=== PATIENT | male | born 1970 | race Caucasian/White ===

== ENCOUNTER → 2021-03-14 15:13 | Outpatient (CLI) | payer BC, SELFPAY ==
--- NOTE | ~2021-03-14 | XR_ITS ---
XR finger 2nd RT min 2V DATE: 03/14/2021 15:29 INDICATION: Fracture/dislocation of second digit TECHNIQUE: 4 views COMPARISON: None FINDINGS: No fracture or dislocation, periosteal reaction or bone destruction. Joint spaces are prese rved. No subcutaneous emphysema or radiopaque soft tissue foreign body. IMPRESSION: No significant abnormality of second digit Reviewed, dictated and finalized at location A.
== END ==
PROVIDERS: Visit Provider Plastic Surgery
DX: S62.600A Fracture of unspecified phalanx of right index finger, initial encounter for closed fracture (principal); X58.XXXA Exposure to other specified factors, initial encounter
CPT/HCPCS: 73140

== ENCOUNTER → 2021-11-03 07:23 | Outpatient (CLI) | payer BC, SELFPAY ==
--- NOTE | ~2021-11-03 | MR_ITS ---
EXAMINATION: MR knee RT wo con DATE: 11/03/2021 08:13 INDICATION: Chronic right knee pain TECHNIQUE: Magnetic resonance imaging (MRI) of the right knee was performed without intravenous contr ast. Sequences included axial PD-weighted FS FSE, coronal PD-weighted FSE and PD-weighted FS FSE, sag ittal PD-weighted FSE, and sagittal T2-weighted FS FSE. COMPARISON: X-ray 05/01/2005 FINDINGS: Medial compartment: Normal meniscus. Cartilage intact. Lateral compartment: Normal meniscus. Cartilage intact. Patellofemoral compartment: Mild osteophytosis. Extensor mechanism and retinacula are intact. Irregular, somewhat cystic or serpi ginous appearing T2 hyperintensity mixed with areas of low signal intensity in the suprapatellar fat. Ligaments and tendons: ACL, PCL, LCL, and MCL are intact. Fluid: No significant joint effusion. Osseous/other: Benign and homogenous marrow signal. IMPRESSION: 1. Indeterminate lesion in the suprapatellar fat, this may represent pseudotumor from chronic impinge ment, old hematoma or fat necrosis, less likely PVNS or malignancy. This may require biopsy for defin itive characterization (recommend referral to orthopedic oncology if biopsy is considered). Reviewed, dictated and finalized at location K. IMPRESSION: 1. Indeterminate lesion in the suprapatellar fat, this may represent pseudotumo r from chronic impingement, old hematoma or fat necrosis, less likely PVNS or m alignancy. This may require biopsy for definitive characterization (recommend r eferral to orthopedic oncology if biopsy is considered).
== END ==
PROVIDERS: PCP Family Medicine; Visit Provider Orthopaedic Surgery
DX: M25.561 Pain in right knee (principal); G89.29 Other chronic pain; M88.9 Osteitis deformans of unspecified bone
CPT/HCPCS: 73721

== ENCOUNTER → 2022-08-05 16:39 | Outpatient (CLI) | payer BC, SELFPAY ==
--- NOTE | ~2022-08-05 | XR_ITS ---
EXAMINATION: XR finger 3rd LT min 2V DATE: 08/05/2022 16:52 INDICATION: Pain and swelling at the left third digit post injury at the proximal interphalangeal amy nt 4 weeks prior TECHNIQUE: Dorsal palmar, lateral and 2 oblique views of the left third digit were obtained COMPARISON: None FINDINGS: Bone alignment is normal. No fracture. Joint spaces are normal. Soft tissue swelling about the left t hird proximal interphalangeal joint. IMPRESSION: 1. No osseous abnormality. Reviewed, dictated and finalized at location A. RIM CONTROLLER IMPRESSION: 1. No osseous abnormality.
== END ==
PROVIDERS: PCP Family Medicine; Visit Provider Family Medicine
DX: S69.92XA Unspecified injury of left wrist, hand and finger(s), initial encounter (principal); X58.XXXA Exposure to other specified factors, initial encounter
CPT/HCPCS: 73140

== ENCOUNTER 2024-09-06 01:42 | Day surgery (SDC) | payer BC, SELFPAY ==
[2024-08-17 13:36] VITALS: BMI 25.8
--- OUTSIDE RECORDS SUMMARY | 2024-09-06 01:45 | XMS_ITS | Encounter Summary ---
Author Organization [facility] Address [address] [place] [address] Care Team Providers Care Reservations Sales Supervisor Name Role Phone Unavailable Primary Care Provider Unavailabl e Encounter Details Date Type Department Care Team (Late st Contact Info) Description 11/01/2021 Lab Requisition [facility] DermPath Lab [address] [place] [address] Marcelo Hayden MD PROFESSIONAL [place], [place] [id number] Social History Tobacco Use Types Packs/Day Years Used Date Smoking Tobacco: Never Smokeless Tobacco: Never Sex and Gender Information Value Date Recorded Sex Assigned at Not on file Gender Identity Not on file Sexual Orientation Not on file documented as of this encounter Plan of Treatment Not on file documented as of this encounter Procedures Procedure Name Priority Date/Time Associated Diagnosis Comments DERMATOPATHOLOGY Routine 10/31/2021 3:33 AM CDT documented in this encounter Results * DERMATOPATHOLOGY (10/31/2021 3:33 AM CDT) Case Report Dermatopathology Report Case: [id number] Authorizing Provider: Marcelo Hayden MD Collected: 10/31/2021 03:33 AM Ordering Location: [facility] D[facility] Lab Received: 11/01/2021 01:57 PM Pathologist: Lopez Andres MD Specimen: Skin, right anterior shoulder 2 6:54 PM CDT DERMATOPATHOLOGY LABORATORY Final Diagnosis Specimen A. SKIN, right anterior shoulder: SEBORRHEIC KERATOSIS, INFLAMED (L82.0) 2 6:54 PM CDT DERMATOPATHOLOGY LABORATORY Clinical History R/O BCC, SCC, ISK. 2 6:54 PM CDT DERMATOPATHOLOGY LABORATORY Gross Description Specimen A: Received is one formalin filled container labeled with the patient's name and designated right anterior shoulder. The specimen consists of a shave biopsy measuring [id number]. Jar 0. 2 6:54 PM CDT DERMATOPATHOLOGY LABORATORY Microscopic Description Specimen A. SKIN, right anterior shoulder: There is hyperkeratosis, parakeratosis, papillomatosis, and acanthosis of the epidermis. There is a lymphohistiocytic infiltrate within the papillary dermis that is focally lichenoid. 2 6:54 PM CDT DERMATOPATHOLOGY LABORATORY Disclaimer An external and internal positive and negative controls are appropriate for the histochemical, immunohistochemical and immunofluorescence stain(s) in this case (if any), except where stated explicitly. The performance characteristics of the stain(s) cited in this report were developed and its performance characteristic determined by the Dermatopathology Laboratory at [facility], directed by Dr. Tong Andres. These tests need not be, and therefore are not, approved by the [place] Food and Drug Administration. The tests are used for clinical purposes. Billing Codes Specimen Charges Stain Charges 55090 1 2 6:54 PM CDT DERMATOPATHOLOGY LABORATORY Embedded Images 2 6:54 PM CDT DERMATOPATHOLOGY LABORATORY Pathology/Cytolo gy TISSUE SPECIMEN FROM SKIN / Unknown 10/31/2021 3:33 AM CDT 11/01/2021 1:57 PM CDT Marcelo Hayden MD LAB - PATHOLOGY/CYTO LOGY ORDERABLES DERMATOPATHOLOGY LABORATORY [facility] - Department of Dermatology [address], [address] [phone] documented in this encounter Visit Diagnoses Not on filedocumented in this encounter
--- OUTSIDE RECORDS SUMMARY | 2024-09-06 01:45 | XMS_ITS | Patient Health Summary ---
Author Organization [facility] Address [address] [place] [address] Care Team Providers Care Retail Grocer Name Role Phone Unavailable Primary Care Provider Unavailabl e Note from [facility],non-owned Affiliates and Associated Physician Practices is amultiple site organization consisting of ambulatory clinics and hospital sitesin [place], [place] and [place]. This disclosure is being madepursuant to the Care Everywhere program and may not contain all information available regarding this patient. Last updated 18.[facility] Allergies No known active allergies Medications * Be aware that medications may not be up to date on this document. Alwaysverify current medications with the patient. * ALBUTEROL IN * Testosterone (ANDROGEL TD) * fluticasone propionate (FLONASE) 50 MCG/ACT nasal spray(Started 04/15/2017) [place] 2 sprays into each nostril once daily Social History Tobacco Use Types Packs/Day Years Used Date Smoking Tobacco: Never Smokeless Tobacco: Never Sex and Gender Information Value Date Recorded Sex Assigned at Not on file Gender Identity Not on file Sexual Orientation Not on file Last Filed Vital Signs Vital Sign Reading Time Taken Comments Blood Pressure 118/60 04/15/2017 2:54 PM CDT Pulse 75 04/15/2017 2:54 PM CDT Temperature 36.9 C (98.4 F) 04/15/2017 2:54 PM CDT Respiratory Rate 16 04/15/2017 2:54 PM CDT Oxygen Saturation 97% 04/15/2017 2:54 PM CDT Inhaled Oxygen Concentration - - Weight 79.4 kg (175 lb) 04/15/2017 2:54 PM CDT Height 182.9 cm (6') 04/15/2017 2:54 PM CDT Body Mass Index 23.73 04/15/2017 2:54 PM CDT Procedures * DERMATOPATHOLOGY(Performed 10/31/2021) * DERMATOPATHOLOGY(Performed 05/09/2021) * DERMATOPATHOLOGY(Performed 04/09/2016) Results * DERMATOPATHOLOGY (10/31/2021 3:33 AM CDT) Only the most recent of3 resultswithin the time period is included. Case Report Dermatopathology Report Case: [id number] Authorizing Provider: Marcelo Hayden MD Collected: 10/31/2021 03:33 AM Ordering Location: [facility] DermPath Lab Received: 11/01/2021 01:57 PM Pathologist: [...] specimen consists of a shave biopsy measuring [id number]. Jar 0. 2 6:54 PM CDT DERMATOPATHOLOGY [...] characteristic determined by the Dermatopathology Laboratory at [facility], directed by Dr. Tong Andres. These tests need not be, and therefore are not, approved by the [place] Food and Drug Administration. The tests are used for clinical purposes. Billing Codes Specimen Charges Stain Charges 32362 1 2 6:54 PM CDT DERMATOPATHOLOGY LABORATORY Embedded Images 2 6:54 PM CDT DERMATOPATHOLOGY LABORATORY Pathology/Cytolo gy TISSUE SPECIMEN FROM SKIN / Unknown 10/31/2021 3:33 AM CDT 11/01/2021 1:57 PM CDT Marcelo Hayden MD LAB - PATHOLOGY/CYTO LOGY ORDERABLES DERMATOPATHOLOGY LABORATORY [facility] - Department of Dermatology [facility] Medicine [address] [place] [address], [address] [phone]
--- OUTSIDE RECORDS SUMMARY | 2024-09-06 01:45 | XMS_ITS | Encounter Summary ---
Author Organization [facility] Address [address] [place] [address] Care Team Providers Care Brewing Technician Name Role Phone Unavailable Primary Care Provider Unavailabl e Encounter Details Date Type Department Care Team (Late st Contact Info) Description 2021 Lab Requisition [facility] DermPath Lab [address] [place] [address] [place] [address] Social History Tobacco Use Types Packs/Day Years [...] Priority Date/Time Associated Diagnosis Comments DERMATOPATHOLOGY Routine 05/09/2021 12:0 0 AM CUSHION SPRING ASSEMBLER documented in this encounter Results * DERMATOPATHOLOGY (05/09/2021 12:00 AM CUSHION SPRING ASSEMBLER) Case Report Dermatopathology Report Case: [id number] Authorizing Provider: Marcelo Hayden MD Collected: 05/09/2021 12:00 AM Ordering Location: [facility] DermPath Lab Received: 2021 12:50 PM Pathologist: Lopez Andres MD Specimen: Skin, right lateral upper arm 2:24 PM CUSHION SPRING ASSEMBLER DERMATOPATHOLOGY LABORATORY Final Diagnosis Specimen A. SKIN, right lateral upper arm: PIGMENTED SEBORRHEIC KERATOSIS (L82.1) NOT PRESENT AT SAMPLED MARGIN 2:24 PM [facility] DERMATOPATHOLOGY LABORATORY Clinical History R/O SK vs dysplastic nevus. Check margins. 2:24 PM [facility] DERMATOPATHOLOGY LABORATORY Gross Description Specimen A: Received is one formalin filled container labeled with the patients name and designated right lateral upper arm. The specimen consists of a shave removal measuring [id number]. The margin is inked green. Jar 0. 2:24 PM [facility] DERMATOPATHOLOGY LABORATORY Microscopic Description Specimen A. SKIN, right lateral upper arm: Sections show an acanthotic lesion composed of relatively uniform keratinocytes. There is hyperkeratosis and pseudo horn cysts. Pigment is present in the keratinocytes composing this tumor. This lesion is not present at the sampled margin of the specimen. 2:24 PM [facility] DERMATOPATHOLOGY LABORATORY Disclaimer An external and internal positive and negative controls are appropriate for the histochemical, immunohistochemical and immunofluorescence stain(s) in this case (if any), except where stated explicitly. The performance characteristics of the stain(s) cited in this report were developed and its performance characteristic determined by the Dermatopathology Laboratory at [facility], directed by Dr. Tong Andres. These tests need not be, and therefore are not, approved by the [place] Food and Drug Administration. The tests are used for clinical purposes. Billing Codes Specimen Charges Stain Charges 58557 1 2:24 PM CUSHION SPRING ASSEMBLER DERMATOPATHOLOGY LABORATORY Embedded Images 2:24 PM [facility] DERMATOPATHOLOGY LABORATORY Pathology/Cytolog y TISSUE SPECIMEN FROM SKIN / Unknown 05/09/2021 2021 12:50 PM CUSHION SPRING ASSEMBLER Marcelo Hayden MD LAB - PATHOLOGY/CYTO LOGY ORDERABLES DERMATOPATHOLOGY LABORATORY [facility] - Department of Dermatology [address] [place] [address], [facility] [phone] documented in this encounter Visit Diagnoses Not on filedocumented in this encounter
--- OUTSIDE RECORDS SUMMARY | 2024-09-06 01:45 | XMS_ITS | Referral Summary ---
Author Organization [facility] [address] Address [address] [place] [address] Care Team Providers Care Statistical Methods Professor Name Role Phone Kenny Arriaza MD Primary Care Provider [phone] Encounters Date Type Department Care Team Description 08/02/2024 3:00 PM MANAGER MILITARY Office Visit [facility] ([facility]) - [facility] ENT [address]th [place] [address] [place] [phone] Kenny Braswell MD Postop check (Primary Dx) 07/05/2024 Telephone [facility]) - [facility] ENT [address]th [place] [address] [place] [phone] Martha Glover MS from Last 3 Months Allergies No known active allergies Medications albuterol HFA (PROVENTIL HFA,VENTOLIN HFA,PROAIR HFA) 90 mcg/actuation inhaler Inhale 2 puffs every 6 (six) hours as needed for wheezing or shortness of breath Active loratadine (CLARITIN) 10 mg tablet Take 10 mg by mouth daily Active oxyCODONE (ROXICODONE) 5 mg immediate release tabletIndicatio ns:Pain Take 1 tablet (5 mg total) by mouth every 4 (four) hours as needed (Intolerable pain that is unresponsive to other medications) 12 tablet 4 Active Additional Information Patient not taking.Reported on 08/02/2024 docusate sodium (COLACE) 50 mg capsuleIndicati ons:constipatio n Take 2 capsules (100 mg total) by mouth 2 (two) times a day as needed (use while taking narcotic medication to avoid opioid-induced constipation) 28 capsule Active sodium chloride (OCEAN) 0.65 % nasal spray Administer 1 spray into each nostril as needed for congestion 15 mL 3 4 05/19/20 Active Additional Information Patient not taking.Reported on 08/02/2024 acetaminophen (TYLENOL) 500 mg tablet Take 2 tablets (1,000 mg total) by mouth every 6 (six) hours as needed for pain or headaches 240 tablet Active Active Problems Problem Noted Date Diagnosed Date Nasal deformity, acquired 05/19/2024 Nasal valve stenosis 01/22/2024 Deviated nasal septum 01/22/2024 Nasal turbinate hypertrophy 01/22/2024 Social History Tobacco Use Types Packs/Day Years Used Date Smoking Tobacco: Never Smokeless Tobacco: Never Tobacco Cessation:Counseling Given: Not Answered Alcohol Use Standard Drinks/Week Comments Yes 7 (1 standard drink = 0.6 oz pur e alcohol) AUDIT-C Answer Date Recorded Q1: How often do you have a drink containing alc ohol? 2-3 times a week 05/19/2024 Q2: How many drinks containi ng alcohol do you have on a typical day when you are drinking? 3 or 4 05/19/2024 Q3: How often do you have si x or more drinks on one occasion? Never 05/19/2024 Personal Safety Answer Date Recorded Have you ever been in or are you currently in a harmful physical or emotional relationship or is someone making you feel afraid or unsafe? Denies 05/19/2024 Sex and Gender Information Value Date Recorded Sex Assigned at Not on file Legal Sex Male 3:19 AM MANAGER MILITARY Gender Identity Male 2020 9:09 AM MANAGER MILITARY Sexual Orientation Not on file Last Filed Vital Signs Vital Sign Reading Time Taken Comments Blood Pressure 133/83 05/19/2024 6:20 PM MANAGER MILITARY Pulse 75 05/19/2024 6:20 PM MANAGER MILITARY Temperature 36.2 C (97.2 F) 05/19/2024 11:14 AM MANAGER MILITARY Respiratory Rate 15 05/19/2024 6:20 PM MANAGER MILITARY Oxygen Saturation 94% 05/19/2024 6:20 PM MANAGER MILITARY Inhaled Oxygen Concentration - - Weight 83.6 kg (184 lb 3.2 oz) 08/02/2024 2:59 P M MANAGER MILITARY Height 180.3 cm (5' 11 ) 04/28/2024 5:10 PM CDT Body Mass Index 25.69 04/28/2024 5:10 PM CDT Plan of Treatment Not on file Insurance Capsule Tech OOS Capsule Tech OOS Capsule Tech OOS Care Teams Statistical Methods Professor Relationship Specialty Start Date End Date Kenny Arriaza MD [address] [place] [address] PCP - General Family Medicine 10/24/21
--- OUTSIDE RECORDS SUMMARY | 2024-09-06 01:45 | XMS_ITS | Clinical Summary ---
Author Organization [facility] [address] Address [address] [place] [address] Care Team Providers Care Signing Teacher Name Role Phone Kenny Arriaza MD Primary Care Provider [phone] Allergies No known active allergies Medications albuterol [...] medication to avoid opioid-induced constipation) 28 capsule 4 Active sodium chloride (OCEAN) 0.65 % nasal spray Administer 1 spray into each nostril as needed for congestion 15 mL 3 4 05/19/20 25 Active Additional Information Patient not taking.Reported on 08/02/2024 acetaminophen (TYLENOL) 500 mg tablet Take 2 tablets (1,000 mg total) by mouth every 6 (six) hours as needed for pain or headaches 240 tablet 4 Active Active Problems Problem Noted Date Diagnosed Date Nasal deformity, acquired 05/19/2024 Nasal valve stenosis 01/22/2024 Deviated nasal septum 01/22/2024 Nasal turbinate hypertrophy 01/22/2024 Encounters Date Type Department Care Team Description 08/02/2024 3:00 PM CAMP ATTENDANT Office Visit [facility] - [facility] ENT [address] [place] [address] [place] [phone] Kenny Braswell MD Postop check (Primary Dx) 07/05/2024 Telephone [facility]) - [facility] ENT [address] [place] [address] [place] [phone] Martha Glover MS from Last 3 Months Surgical History Surgery Date Site/Laterality Comments LASIK CYST REMOVAL Medical History Medical History Date Comments Arrhythmia exercise induced Family History Medical History Relation Name Comments No Known Problems Father Alzheimer's disease Mother Anesthesia problems Neg Hx Relation Name Status Comments Father Alive Mother (Age 79) Sister 1 Alive Sister 2 Alive Sister 3 Alive Social History Tobacco Use Types Packs/Day Years [...] on file Legal Sex Male 3:19 AM CAMP ATTENDANT Gender Identity Male 2020 9:09 AM CAMP ATTENDANT Sexual Orientation Not on file Obstetrics History Last Filed Vital Signs Vital Sign Reading Time Taken Comments Blood Pressure 133/83 05/19/2024 6:20 PM CAMP ATTENDANT Pulse 75 05/19/2024 6:20 PM CAMP ATTENDANT Temperature 36.2 C (97.2 F) 05/19/2024 11:14 AM CAMP ATTENDANT Respiratory Rate 15 05/19/2024 6:20 PM CAMP ATTENDANT Oxygen Saturation 94% 05/19/2024 6:20 PM CAMP ATTENDANT Inhaled Oxygen Concentration - - Weight 83.6 kg (184 lb 3.2 oz) 08/02/2024 2:59 P M CAMP ATTENDANT Height 180.3 cm (5' 11 ) 04/28/2024 5:10 PM CDT Body Mass Index 25.69 04/28/2024 5:10 PM CDT Plan of Treatment Health Maintenance Due Date Last Done Comments Colon Cancer Screening-Colonoscopy 1972 Depression Screening 1972 Hepatitis C Screening 1972 Prostate Cancer Screening-PSA 1972 DTaP/Tdap/Td Vaccine (1 - Tdap) 1983 Hepatitis B Screening 1990 Regular Well Visit/Exam 18-64 1990 Zoster Vaccine (1 of 2) 2022 Influenza Vaccine Completed 06/07/2024 Pneumococcal vaccine <65 Aged Out No longer eligible based on patient's age to complete this topic Insurance [employer] OOS [employer] [id number] [employer] OOS Care Teams Signing Teacher Relationship Specialty Start Date End Date Kenny Arriaza MD [address] [place] [address] [place] [id number] PCP - General Family Medicine 10/24/21
--- OUTSIDE RECORDS SUMMARY | 2024-09-06 01:45 | XMS_ITS | Clinical Summary ---
Author Organization [facility] Address [address] [address] Care Team Providers Care Kettleman Name Role Phone Unavailable Primary Care Provider Unavailabl e Source Comments [facility],non-owned Affiliates and Associated Physician Practices is amultiple site organization consisting of ambulatory clinics and hospital sitesin [place], [place], [place] and [place]. This disclosure is being madepursuant to the Care Everywhere program and may not contain all information available regarding this patient. Last updated 18.[employer] [facility] Allergies No known active allergies Medications * Be aware that medications may not be up to date on this document. Alwaysverify current medications with the patient. Medication Sig Dispensed Refills Start Date End Date Status ALBUTEROL IN Active Testosterone (ANDROGEL TD) Active fluticasone propionate (FLONASE) 50 MCG/ACT nasal sprayIndications:Acut e maxillary sinusitis, recurrence not specified [place] 2 sprays into each nostril once daily 1 bottles 04/15/2017 Active Family History Medical History Relation Name Comments Cancer - Skin, Non Melanoma Father Dementia Mother Relation Name Status Comments Father Mother Social History Tobacco Use Types Packs/Day Years [...] Mass Index 23.73 04/15/2017 2:54 PM CDT Plan of Treatment Health Maintenance Due Date Last Done Comments COLOGUARD (AGES 45-75) - COL ON CA SCREENING 1972 COLON MONITORING 1972 COLONOSCOPY - COLON CA SCREENING 1972 CT COLONOGRAPHY - COLON CA SCREENING 1972 Colorectal Cancer Screening 1972 FIT - COLON CA SCREENING 1972 FLEX SIG - COLON CA SCREENING 1972 LIPID TESTING 1972 HIV SCREENING 1987 HEPATITIS C SCREENING 05/06/1990 DTAP/TDAP/TD VACCINES (1 - Tdap) 1991 HEPATITIS B VACCINE (1 of 3 - 19+ 3-dose series) 1991 PNEUMOCOCCAL VACCINE 50+ (1 of 1 - PCV) 2022 ZOSTER VACCINE (1 of 2) 2022 COVID-19 VACCINE (1 - 2023-2 5 season) 2024 INFLUENZA VACCINE (#1) 2024 DEPRESSION SCREENING 06/30/2024 HIB VACCINE Aged Out No longer eligi ble based on patient's age to complete this topic HPV VACCINE Aged Out No longer eligi ble based on patient's age to complete this topic MENINGOCOCCAL (Group B) VACCINE Aged Out No longer eligible based on patient's age to complete this topic MENINGOCOCCAL VACCINE Aged Out No liam malachi eligible based on patient's age to complete this topic PNEUMOCOCCAL VACCINE Aged Out No long er eligible based on patient's age to complete this topic Jose Enrique Luong Personal/Family Self 1970 [address] [id number]
--- OUTSIDE RECORDS SUMMARY | 2024-09-06 01:45 | XMS_ITS | Referral Summary ---
Author Organization [facility] Address [address] [place] [address] Care Team Providers Care Grading Machine Operator Name Role Phone Unavailable Primary Care Provider Unavailabl e Source Comments [facility],non-owned Affiliates and Associated Physician Practices is amultiple site organization consisting of ambulatory clinics and hospital sitesin [place], [place], [place] and [place]. This disclosure is being madepursuant to the Care Everywhere program and may not contain all information available regarding this patient. Last updated 18.[employer] [facility] Allergies No known active allergies Medications * Be aware that medications may not be up to date on this document. Alwaysverify current medications with the patient. Medication Sig Dispensed Refills Start Date End Date Status ALBUTEROL IN Active Testosterone (ANDROGEL TD) Active fluticasone propionate (FLONASE) 50 MCG/ACT nasal sprayIndications:Acut e maxillary sinusitis, recurrence not specified [place] 2 sprays into each nostril once daily 1 bottles 04/15/2017 Active Social History Tobacco Use Types Packs/Day Years [...] 04/15/2017 2:54 PM CDT Plan of Treatment Not on file Jose Enrique Luong Personal/Family Self 1970 [address] [place] [id number]
[2024-09-06 10:24] VITALS: BP 121/70; PULSE 61; RESP 18; TEMP 36.7; O2SAT 100; BMI 24.5
[2024-09-06] MEDS: LACTATED RINGERS 1,000 ML 150 ML IV CONT (10:43)
--- NOTE | 2024-09-06 10:59 | P.PNAN_ITS ---
Anes - Initial Pre Proc Eval Procedure: Operation Date: 09/06/24 12:00 Proposed Procedures p Colonoscopy - Juanpablo Weeks MD Date/Time: 09/06/24 10:59 Surgeon: Juanpablo Weeks MD Pre Op Diagnosis: family hx of cancer Patient Data Age: 54 Gender: M Height: 1.8 m Weight: 80 kg Last Vital Signs Temp 36.7 C 09/06/24 10:24 Pulse 61 09/06/24 10:24 Resp 18 09/06/24 10:24 BP 121/70 09/06/24 10:24 Pulse Ox 100 09/06/24 10:24 O2 Del Method Room Air 09/06/24 10:24 Allergies Allergy/AdvReac Type Severity Reaction Status Date / Time No Known Allergies Allergy Verified 09/06/24 10:30 Home Medications ?Medication ?Instructions ?Recorded ?Confirmed ?Type albuterol sulfate 90 mcg/actuation 1 puff inhalation DAILY PRN 10/11/22 08/17/24 Rx aerosol inhaler (ProAir HFA) Exercise Induced Bronchospasm #8.5 grams omega 0-ggn-fpb-fish oil 1,000 mg 1 cap PO DAILY 08/17/24 09/06/24 History (120 mg-180 mg) capsule (Fish Oil) Patient hx anesthesia problems: none Family hx anesthesia problems: none Results Review: All pre-operative results and documents have been reviewed as part of the pre- operative evaluation. [facility] Past Medical History Medical History Encounter for general adult medical examination without abnormal findings Colon cancer screening (~04/2019) Asthma Family History Family History Father Diabetes mellitus Other Carcinoma of colon Social History Social History Smoking status: Never smoker Second hand tobacco smoke exposure: No Alcohol intake: current Drinks per week: 12 Alcohol use details: Beer Substance use: never Substance use type: does not use Do You Feel Safe in your Home?: Yes Lack of Transportation: No Lack of Food: Never True Current Housing: I Have Housing Concerned About Future Housing: No Difficulty Paying Gas/Electric Bills: No Difficulty Paying for Meds: No Currently Unemployed: No Education: Master's Degree or Higher Difficulty w/ Childcare or Family Care: No Living arrangements: with family Occupation/Education: occupation Gender identity (if verbalized by the patient): Male Sexual Orientation (if Verbalized by the Patient): Straight or Heterosexual Spiritual care concerns: No Anes - Eval Final PreProcedure Day of Procedure 09/06/24 10:59 Patient weight: normal Heart: regular rate and rhythm Lungs: clear to auscultation Airway: Mallampati scale class II Neurological: alert and oriented Last oral intake: >/= 8 hours ASA classification: II Emergent: no Anesthetic plan: proceed Anesthesia type and monitoring: general GIVS and standard monitoring Results Review: All pre-operative results and documents have been reviewed as part of the pre- operative evaluation. Informed Consent: The patient's anesthetic plan and its attendant risks and benefits were discussed with the patient/family/POA. Questions were solicited and answers provided to the satisfaction of the patient/family/POA.
--- NOTE | 2024-09-06 11:16 | PM.HPGS ---
History of Present Illness History of Present Illness Consent: Risks, benefits, and alternatives have been discussed and questions answered. Patient agrees to proceed with procedure. Chief complaint: family hx of cancer Narrative: Jose Enrique Luong is a 54 year old male with family h/o CRC, last colonoscopy 5 years ago Review of Systems Review of Systems: All systems reviewed & are unremarkable except as noted in HPI and below PMFSH Past Medical History Medical History (Updated 09/06/24 @ 11:17 by Juanpablo Weeks MD) Family history of colon cancer Encounter for general adult medical examination without abnormal findings Colon cancer screening (~04/2019) Asthma Family History Family History Father Diabetes mellitus Other Carcinoma of colon Social History Social History Smoking status: Never smoker Second hand tobacco smoke exposure: No Alcohol intake: current Drinks per week: 12 Alcohol use details: Beer Substance use: never Substance use type: does not use Do You Feel Safe in your Home?: Yes Lack of Transportation: No Lack of Food: Never True Current Housing: I Have Housing Concerned About Future Housing: No Difficulty Paying Gas/Electric Bills: No Difficulty Paying for Meds: No Currently Unemployed: No Education: Master's Degree or Higher Difficulty w/ Childcare or Family Care: No Living arrangements: with family Occupation/Education: occupation Gender identity (if verbalized by the patient): Male Sexual Orientation (if Verbalized by the Patient): Straight or Heterosexual Spiritual care concerns: No Meds Home Medications and Allergies Home Medications ?Medication ?Instructions ?Recorded ?Confirmed ?Type albuterol sulfate 90 mcg/actuation 1 puff inhalation DAILY PRN 10/11/22 08/17/24 Rx aerosol inhaler (ProAir HFA) Exercise Induced Bronchospasm #8.5 grams omega 9-wsk-ojf-fish oil 1,000 mg 1 cap PO DAILY 08/17/24 09/06/24 History (120 mg-180 mg) capsule (Fish Oil) Allergies Allergy/AdvReac Type Severity Reaction Status Date / Time No Known Allergies Allergy Verified 09/06/24 10:30 Vital Signs Vital Signs - 24 hr 09/06/24 10:24 Temperature 98.0 F Pulse Rate 61 Respiratory Rate 18 Blood Pressure 121/70 Pulse Oximetry 100 Oxygen Delivery Room Air Exam Const: General: comfortable and no acute distress HENMT: Face/Nose/Sinus: Normal nares present Eyes: General: appearance normal, both eyes and all related structures Neck: Neck: no JVD Resp: Auscultation: clear to auscultation bilaterally Cardio: Rate: regular rate Rhythm: regular rhythm GI: Inspection: non-distended GI Palp: Yes Soft to palpation Skin: General skin exam: normal color Neuro: General: gait normal Speech: normal speech Extrem: General: normal to inspection Psych: Mental Status: mental status grossly normal Assessment and Plan Assessment and plan (1) Family history of colon cancer: Code(s): Z80.0 - Family history of malignant neoplasm of digestive organs Status: Acute Assessment and Plan: colonoscopy
[2024-09-06 11:35] VITALS: BP 102/59; PULSE 65; RESP 17; O2SAT 97
[2024-09-06 11:45] VITALS: BP 100/73; PULSE 50; RESP 12; O2SAT 100
[2024-09-06 11:55] VITALS: BP 115/80; PULSE 51; RESP 14; O2SAT 100
== END 2024-09-06 12:12 | disposition home or self-care (01) ==
PROVIDERS: PCP Family Medicine; Referring Provider Internal Medicine Gastroenterology; Visit Provider Internal Medicine Gastroenterology
PROC: 0DJD8ZZ Inspection of Lower Intestinal Tract, Via Natural or Artificial Opening Endoscopic (ICD-10-PCS; CPT 45378; principal; 2024-09-06 12:00)
DX: Z12.11 Encounter for screening for malignant neoplasm of colon (principal); K63.5 Polyp of colon; K64.8 Other hemorrhoids; Z80.0 Family history of malignant neoplasm of digestive organs
CPT/HCPCS: 45380; 88305; J2003; J2704; J7120